=== PATIENT | female | born 1960 | race Caucasian/White ===

== ENCOUNTER 2017-12-20 06:07 | Emergency (ER) | payer OTHER, SELFPAY ==
--- NOTE | 2017-12-20 06:08 | ED.RN ---
CALLED [employer] FOR TESTING
[2017-12-20 06:09] VITALS: BP 151/92; PULSE 75; RESP 17; TEMP 36.4; O2SAT 99; BMI 28.6
[2017-12-20 06:12] VITALS: BP 97/89; PULSE 85; RESP 14; O2SAT 96
--- NOTE | 2017-12-20 06:25 | ED.VISSUMM ---
- ER Visit Summary Date of Service: 12/20/17 Chief Complaint: Facial pain status post fall History of Present Illness: The patient is a 57 F with no medical history who presents for facial injuries after a fall. Patient tripped over a steel beam at work and fell striking her face on concrete. She is complaining of upper incisor pain and feeling of lip tightness. Patient is also complaining of scrapes on her lower extremities. Unknown when last tetanus was. Patient denies loss of consciousness. No neck or back pain. She is not on any blood thinners. Patient has history of left hip degeneration, with pending hip replacement. Physical Examination: Vital signs: afebrile, hemodynamically stable, no hypoxia on room air General: well nourished, well developed, in no distress Skin: warm, dry, abrasions to the left knee, dirt on the face, upper extremities, and lower extremities. HEENT: normocephalic and atraumatic, no scalp tenderness or hematoma; PERRL, EOMI, no tenderness or deformity to the nasal bridge, no septal hematoma, no malocclusion, no hemotympanum, swelling noted to the upper lip, the left front incisors or is embedded in the mucosal surface of the upper lip. No lower tooth tenderness or avulsion/loose teeth. Moist mucous membranes, no oropharyngeal bleeding Neck: Supple, full active range of motion, no midline tenderness deformities or step-offs Cardiovascular: regular rate and rhythm without murmurs, no peripheral edema, 2+ pulses all distal extremities, no chest tenderness Respiratory: No increased work of breathing, lungs are clear to auscultation bilaterally, no rales, rhonchi or wheezing Abdominal: Abdomen is soft, nontender with normoactive bowel sounds, no guarding or rebound, no masses MSK: Moves all extremities, no deformities, normal strength, pelvis is stable, negative logroll bilaterally of the hips, full flexion and extension of the knees, distal motor, strength and sensation intact all extremities Neuro: Awake and alert, oriented ?4. No facial droop, sensation and motor function intact and symmetric Test Results: [] Emergency Department Course and Treatment: Patient presents with injuries to her face and left lower extremity after a fall. Patient declined pain medications. Patient had no findings on history or exam concerning for ICH, and exam was not concerning for nasal fracture or any other facial fractures. Her left front incisor was stuck in her upper lip, and secondary to pain, we were unable to free the lip without anesthesia. Thus a cotton ball was soaked in LET, divided, and placed on either side of the entrapped section of lip. While patient was holding the cotton balls in place, her lips spontaneously freed from the tooth. Examination of the upper teeth showed none to be loose or obviously avulsed, impacted or fractured. Patient did feel like 1 of them was tender but upon examining her teeth in a mirror, she felt they looked normal position. The laceration to the mucosal vermilion of the upper lip was examined and was partial thickness, 5 mm in length. Discussed with patient primary closure versus allowing it to heal on its own. Patient did not want suturing performed. Thus we discussed oral hygiene and patient was placed on prophylactic antibiotics. Patient complained of worsening hip pain and an x-ray was performed of the left hip. No fracture noted. Patient will use OTC pain medications as needed. DC home. Treatment Plan: [] Disposition: [] Impression: 5 mm mucosal lip laceration, upper lip; left hip contusion This note was generated with [employer] dictation software. It may contain incorrect words, spelling, and punctuation that were not noted in review of the chart prior to signing ED Disposition - Plan for ED Patient: Chief Complaint: Other, Pain/Inj Prescriptions: Amox/Clavulanate Tablet [Augmentin Tablet] 875 mg PO Q12H #14 tab Referrals: Rody Sanchez DO [Primary Care Provider] -
--- NOTE | 2017-12-20 06:29 | ED.DCSUM_ITS ---
- ER Visit Summary Date of Service: 12/20/17 Chief Complaint: Facial pain status post fall History of Present Illness: The patient is a 57 F with no medical history who presents for facial injuries after a fall. Patient tripped over a steel beam at work and fell striking her face on concrete. She is complaining of upper incisor pain and feeling of lip tightness. Patient is also complaining of scrapes on her lower extremities. Unknown when last tetanus was. Patient denies loss of consciousness. No neck or back pain. She is not on any blood thinners. Patient has history of left hip degeneration, with pending hip replacement. Physical Examination: Vital signs: afebrile, hemodynamically stable, no hypoxia on room air General: well nourished, well developed, in no distress Skin: warm, dry, abrasions to the left knee, dirt on the face, upper extremities , and lower extremities. HEENT: normocephalic and atraumatic, no scalp tenderness or hematoma; PERRL, EOMI, no tenderness or deformity to the nasal bridge, no septal hematoma, no malocclusion, no hemotympanum, swelling noted to the upper lip, the left front incisors or is embedded in the mucosal surface of the upper lip. No lower tooth tenderness or avulsion/loose teeth. Moist mucous membranes, no oropharyngeal bleeding Neck: Supple, full active range of motion, no midline tenderness deformities or step-offs Cardiovascular: regular rate and rhythm without murmurs, no peripheral edema, 2 + pulses all distal extremities, no chest tenderness Respiratory: No increased work of breathing, lungs are clear to auscultation bilaterally, no rales, rhonchi or wheezing Abdominal: Abdomen is soft, nontender with normoactive bowel sounds, no guarding or rebound, no masses MSK: Moves all extremities, no deformities, normal strength, pelvis is stable, negative logroll bilaterally of the hips, full flexion and extension of the knees, distal motor, strength and sensation intact all extremities Neuro: Awake and alert, oriented ?4. No facial droop, sensation and motor function intact and symmetric Test Results: [] Emergency Department Course and Treatment: Patient presents with injuries to her face and left lower extremity after a fall. Patient declined pain medications. Patient had no findings on history or exam concerning for ICH, and exam was not concerning for nasal fracture or any other facial fractures. Her left front incisor was stuck in her upper lip, and secondary to pain, we were unable to free the lip without anesthesia. Thus a cotton ball was soaked in LET, divided, and placed on either side of the entrapped section of lip. While patient was holding the cotton balls in place, her lips spontaneously freed from the tooth. Examination of the upper teeth showed none to be loose or obviously avulsed, impacted or fractured. Patient did feel like 1 of them was tender but upon examining her teeth in a mirror, she felt they looked normal position. The laceration to the mucosal vermilion of the upper lip was examined and was partial thickness, 5 mm in length. Discussed with patient primary closure versus allowing it to heal on its own. Patient did not want suturing performed. Thus we discussed oral hygiene and patient was placed on prophylactic antibiotics. Patient complained of worsening hip pain and an x- ray was performed of the left hip. No fracture noted. Patient will use OTC pain medications as needed. DC home. Treatment Plan: [] Disposition: [] Impression: 5 mm mucosal lip laceration, upper lip; left hip contusion This note was generated with [employer] dictation software. It may contain incorrect words, spelling, and punctuation that were not noted in review of the chart prior to signing ED Disposition - Plan for ED Patient: Chief Complaint: Other, Pain/Inj Prescriptions: Amox/Clavulanate Tablet [Augmentin Tablet] 875 mg PO Q12H #14 tab Referrals: Rody Sanchez DO [Primary Care Provider] -
[2017-12-20] MEDS: Lidocaine/Epi/Tetracaine 50 ML 1 APPLIC TOPICAL (07:06)
[2017-12-20] MEDS: Diphth,Pertuss(Acell),Tet Vac 0.5 ML Vial IM (07:10)
--- NOTE | 2017-12-20 07:20 | NURSING ---
did not have to suture when let was applied and the pt was able to remove skin.
--- NOTE | 2017-12-20 07:48 | RAD_ITS ---
STUDY: X-RAY - PELVIS AND LEFT HIP REASON FOR EXAM: Pain status post fall. TECHNIQUE: Radiological exam, hip, unilateral, with pelvis when performed; 2 or 3 views. COMPARISON: Radiographs 05/13/2012. FINDINGS: There are pelvic phleboliths. Normal bilateral iliac wings, sacroiliac joints and visualized sacrum. There is a bone island in the superior left sacrum. Normal bilateral superior and inferior pubic rami. Normal pubic symphysis. Normal bilateral ischial tuberosities. Normal visualized left femoral head. Normal left acetabulum. Normal left hip joint. There is a right hip arthroplasty. RAD/Hip 2-3 Views with Pelvis IMPRESSION: Right hip arthroplasty. No demonstrated left hip fracture. Electronically Signed: Chris Kaufman MD at 8:02 EDT Tel , Service support ,
--- NOTE | 2017-12-20 07:59 | DCINST.ED_ITS ---
ED Disposition - Plan for ED Patient: Disposition: Home or Assisted Living Chief Complaint: Other, Pain/Inj Instructions: ED Laceration Mouth, ED Contusion Hip Prescriptions: Amox/Clavulanate Tablet [Augmentin Tablet] 875 mg PO Q12H #14 tab Referrals: Rody Sanchez DO [Primary Care Provider] - 3-5 Days if not improving Additional Instructions: Please follow up with your dentist for an evaluation of your teeth after your injury today. Take the antibiotic for infection prevention of your lip laceration. Swish with warm water several times a day to help keep the cut clean. Avoid spicy or acid the foods until it is healed. You may use over-the- counter pain medications as needed for pain. You may also use ice on your upper lip and your hip to help with pain and swelling. If you have any worsening of your condition or any new concerning symptoms, please return immediately to the emergency department for another evaluation.
[2017-12-20 08:14] VITALS: BP 130/72; PULSE 72; RESP 18; O2SAT 99
== END 2017-12-20 08:16 | disposition home or self-care (01) ==
PROVIDERS: Emergency Provider Emergency Medicine; Family Provider Internal Medicine; PCP Internal Medicine
DX: S01.511A Laceration without foreign body of lip, initial encounter (principal); M16.12 Unilateral primary osteoarthritis, left hip; Z79.899 Other long term (current) drug therapy; W01.0XXA Fall on same level from slipping, tripping and stumbling without subsequent striking against object, initial encounter; Y93.01 Activity, walking, marching and hiking; Y92.89 Other specified places as the place of occurrence of the external cause; Y99.0 Civilian activity done for income or pay
CPT/HCPCS: 73502; 90715; 99282

== ENCOUNTER → 2018-01-15 07:22 | Outpatient (CLI) | payer BC, SELFPAY ==
--- NOTE | 2018-01-15 07:25 | BI_ITS ---
MAMMOGRAPHY - BILATERAL SCREENING REASON FOR EXAM: Female, 57 years old. Routine annual screening examination. PERTINENT HISTORY: Mother with breast cancer. TECHNIQUE: Digital bilateral breast nirmal (3D mammographic acquisition) in the CC and MLO projections. 2-D mediolateral oblique (MLO) and craniocaudad (CC) views of both breasts were obtained. CAD: Full Field Digital Mammography with Computer Added Detection was performed. COMPARISON: Comparison is made with prior study dated December 05, 2016 and November 05, 2014. FINDINGS: Breast Composition: There are scattered areas of fibroglandular density. There are no dominant masses or suspicious calcifications. No other significant abnormalities are identified. There has been no significant change since the prior study. BI/SCREENING MAMM (CAD), BILAT IMPRESSION: Stable bilateral screening mammogram. Yearly follow-up mammogram recommended. (A) ASSESSMENT CATEGORY: BIRADS Category 2: Benign. A letter regarding these results will be sent to the patient by the facility within 30 days. Approximately 10% of breast cancers are not detected by mammography. A normal mammogram should not delay biopsy of a clinically suspicious abnormality. [id number] Electronically Signed: James Palomo MD at 10:08 EDT Tel [phone], Service support ,
== END ==
PROVIDERS: Family Provider Internal Medicine; PCP Internal Medicine; Visit Provider Internal Medicine
DX: Z12.31 Encounter for screening mammogram for malignant neoplasm of breast (principal)
CPT/HCPCS: 77063; 77067

== ENCOUNTER → 2019-01-16 | Outpatient (CLI) | payer BC, SELFPAY ==
--- NOTE | 2019-01-16 09:33 | BI_ITS ---
MAMMOGRAPHY - BILATERAL SCREENING REASON FOR EXAM: Female, 58 years old. Routine annual screening examination. PERTINENT HISTORY: Mother with breast cancer. TECHNIQUE: Digital bilateral breast shaan (3D mammographic acquisition) in the CC and MLO projections. 2-D mediolateral oblique (MLO) and craniocaudad (CC) views of both breasts were obtained. CAD: Full Field Digital Mammography with Computer Added Detection was performed. COMPARISON: Comparison is made with prior study dated January 15, 2018 and December 13, 2016. FINDINGS: Breast Composition: There are scattered areas of fibroglandular density. There are no dominant masses or suspicious calcifications. No other significant abnormalities are identified. There has been no significant change since the prior study. BI/SCREEN MAMM (CAD) W/SHAAN BILAT IMPRESSION: Stable bilateral screening mammogram. Yearly follow-up mammogram recommended. (A) ASSESSMENT CATEGORY: BIRADS Category 1: Negative. A letter regarding these results will be sent to the patient by the facility within 30 days. Approximately 10% of breast cancers are not detected by mammography. A normal mammogram should not delay biopsy of a clinically suspicious abnormality. [id number] Electronically Signed: James Palomo, at 11:26 EDT , Service support ,
--- NOTE | 2019-01-16 09:40 | BD_ITS ---
STUDY: DUAL ENERGY X-RAY ABSORPTIOMETRY / DXA REASON FOR EXAM: Female, 58 years old. The patient is postmenopausal. Loss of height. TECHNIQUE: Bone Mineral Density (BMD) measurements of lumbar spine and left forearm were obtained. The patient is status post bilateral hip replacements. COMPARISON: Comparison is made with prior study dated December 05, 2016. FINDINGS: Lumbar Spine (L1-L4): g/cm2 (1.084) / T-score (-0.8) / Z-score (0.4) Findings are suggestive of normal bone density with a low fracture risk. Left Forearm: g/cm2 (0.738) / T-score (-1.6) / Z-score (-0.6) The T-Scores on the most recent prior examination were: Lumbar Spine (L1-L4): There has been worsening of bone density since the previous examination. BD/Dexa Bone Density Study IMPRESSION: The patient is considered osteopenic as outlined below according to World Kenny Organization (WHO) criteria with a moderate fracture risk. There has been worsening of bone density since the previous examination. Reference Information: The T-score is the number of standard deviations above or below the standard which is normal for young adults at their peak bone mineral density. The World Health Organization (WHO) interprets the T-scores as follows: Above -1 Normal bone density Between -1 and -2.5 Osteopenia Equal to / or below -2.5 Osteoporosis As a practical clinical guideline, osteopenia may be graded as follows: Mild -1 through -1.5 Moderate -1.6 through -2.0 Severe -2.1 through -2.4 The Z-score is the number of standard deviations above or below age-matched controls. A Z-score of less than -1.5 would be considered abnormal. References: 1. NIH Osteoporosis and Related Bone Diseases http://www.osteo.org 2. International Society for Clinical Densitometry http://www.iscd.org 3. National Osteoporosis Foundation http://www.nof.org Electronically Signed: James Palomo, at 10:41 EDT , Service support ,
== END | disposition home or self-care (01) ==
LOC: OPBD 09:31
PROVIDERS: Family Provider Internal Medicine; PCP Internal Medicine; Referring Provider Internal Medicine; Visit Provider Internal Medicine
DX: Z78.0 Asymptomatic menopausal state (principal); Z12.31 Encounter for screening mammogram for malignant neoplasm of breast
CPT/HCPCS: 77063; 77067; 77080

== ENCOUNTER 2020-07-09 16:53 | Emergency (ER) | payer BC, SELFPAY ==
[2020-07-08 08:25] VITALS: BMI 27.7
[2020-07-09 16:53] VITALS: BP 115/71; PULSE 106; RESP 16; TEMP 36.5; O2SAT 98; BMI 27.3
--- NOTE | 2020-07-09 17:25 | ED.DCSUM_ITS ---
- ER Visit Summary Date of Service: 07/09/20 Chief Complaint: Left knee pain History of Present Illness: The patient is a [address] Page. She has a history of a right total knee arthroplasty by Dr. Lopez, she reports that she has left knee pain that began 2 days ago. Is a sharp, aching pain is 10 of 10 at worst and 6 out of 10 currently. Is worsened by walking. She taken Flexeril without relief. Denies any trauma. No fall, MVA, or change in activity. 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 She denies any numbness or weakness. Patient was seen at urgent care yesterday and had an x-ray that showed a joint effusion, but no bony abnormality. She was discharged on Flexeril and has not gotten any relief from this. Patient reports the pain was so severe yesterday that she became nausea and vomited once. There is no blood in her emesis. She denies any abdominal pain or diarrhea. No fever or chills. No other complaints. Physical Examination: Vitals: Stable. Afebrile. General: Well-nourished and well-developed. Head: Normocephalic atraumatic. Neck: Supple, no lymphadenopathy. No JVD. Nontender. Cardiovascular: Regular rate and rhythm. No murmurs. Respiratory: No respiratory distress. Clear to auscultation bilaterally. Abdominal: Soft, nontender, nondistended, normal bowel sounds. No guarding, rebound, or peritoneal signs. Back: Nontender. Extremities: Moderate joint effusion to the left knee. She has moderate tenderness palpation over the medial side of the knee. There is no overlying erythema or warmth to suggest a septic joint. She has minimal pain with short arc movements. She does have limited range of motion due to pain over full movements. She has pain, but no ligamentous instability with anterior drawer. No pain or ligamentous instability with posterior drawer or medial/lateral stress. Skin: Normal color, no rash. Neurologic: Alert and oriented ?3. Cranial nerves II through XII are intact. Normal strength and sensation. Psych: Normal affect. Test Results: I reviewed the x-ray from yesterday. It does show the joint effusion and no bony pathology. Emergency Department Course and Treatment: I offered to do arthrocentesis and injection of the patient's knee. She refused this. An OARRS report was obtained which was negative. She refused pain medications while here. She has crutches at home. Treatment Plan: Patient will be discharged with Percocet and Colace. Instructed to use crutches and ice. Follow-up with orthopedic surgeon as soon as possible. Return to the emergency department for any worsening symptoms. Disposition: To home in improved and stable condition. Impression: 1. Left knee pain, acute. This note was generated with [employer] dictation software. It may contain incorrect words, spelling, and punctuation that were not noted in review of the chart prior to signing ED Disposition - Plan for ED Patient: Instructions: ED Knee Pain of Uncertain Cause Prescriptions: Docusate Sodium [Colace] 100 mg PO DAILY #20 capsule Oxycodone HCl/Acetaminophen [Percocet 5/325] 1 tablet PO Q6H PRN PRN 3 Days #12 tablet PRN Reason: Pain Referrals: Sterling Lopez MD [NON-STAFF] - As soon as possible
== END 2020-07-09 17:47 | disposition home or self-care (01) ==
LOC: ED 17:28
PROVIDERS: Emergency Provider Emergency Medicine; PCP Internal Medicine
DX: M25.562 Pain in left knee (principal); F32.9 Major depressive disorder, single episode, unspecified; Z79.899 Other long term (current) drug therapy
CPT/HCPCS: 99282

== ENCOUNTER 2020-07-12 09:07 | Emergency (ER) | payer BC, SELFPAY ==
[2020-07-12 09:07] VITALS: BP 138/97; PULSE 89; RESP 18; TEMP 36.6; O2SAT 99; BMI 29.7
--- NOTE | 2020-07-12 09:24 | RAD_ITS ---
STUDY: X-RAY - LEFT KNEE REASON FOR EXAM: Female, 60 years old. INCREASING MEDIAL LEFT KNEE PAIN AND SWELLING, PT STATES NO INJURY TECHNIQUE: 4 view(s) of the knee. COMPARISON: Comparison is made with prior study dated 07/08/2020. FINDINGS: Normal visualized distal femur. Normal visualized proximal tibia and fibula. Normal proximal tibiofibular articulation. Normal medial femorotibial compartment. Normal lateral femorotibial compartment. Normal patellofemoral articulation. Stable moderate-sized joint effusion. Soft tissue swelling. RAD/Knee 4 or More Views IMPRESSION: Moderate size joint effusion and soft tissue swelling. Electronically Signed: James Palomo MD at 10:00 EST , Service support ,
--- NOTE | 2020-07-12 09:26 | ED.VIS.GEN ---
History of Present Illness Chief Complaint: Lower Extremity Injury Informant: Patient Onset: Days Context: Sudden Onset Timing: Continuous Quality: Pain and swelling Location: Left knee Current Severity: Mild Maximum Severity: Severe Worsened by: Any type of movement and especially weightbearing Relieved by: Nothing Associated Symptoms: No constitutional symptoms, no history of direct trauma Narrative: Patient is 60-year-old woman history of depression and osteoarthritis presents with knee pain that acutely got worse last . She states she was walking down steps. She heard a crunch. Pain started. She has had increased swelling. She states it has swollen in the past but not to this extent. She denies history of gout or pseudogout. She denies fever or chills. She denies history of hypertension and is not on any thiazide diuretic. Patient denies paresthesia, anesthesia or motor weakness. Patient denies direct trauma. Patient is status post right total knee arthroplasty by Dr. Etienne Lopez. Prior similar symptoms: Yes Recent Illness/Hospitalization: No - Past Medical History (1) History of depression Status: Acute (2) History of osteoarthritis Status: Acute Past Medical History - Allergies and Home Meds Allergies/Adverse Reactions: Allergies No Known Allergies Allergy (Verified 07/12/20 09:10) Primary Care Physician: Rody Sanchez DO [Primary Care Provider] - Prior records reviewed: Yes Surgical History: total knee arthroplasty Lives: Alone Smoking Status: Never smoker Alcohol: None Drugs: None Review of Systems General: Denies: Chills, Fever, Malaise, Subjective, Sweats ENT: Denies: Rhinorrhea, Sore throat Cardiovascular: Denies: Chest pain, Palpitations Respiratory: Denies: Dyspnea, Cough Gastrointestinal: Denies: Nausea, Vomiting Genitourinary: Denies: Dysuria, Hematuria, Frequency Musculoskeletal: Reports: Swelling - Left knee, Extremity Pain. Denies: Myalgias, Arthralgias, Neck pain, Back pain Skin: Denies: Rash, Wounds Neurological: Denies: Parasthesia, Numbness Endocrine: Denies: Polyuria, Polydipsia Hematologic: Denies: Easy bruising - Patient states she is not on anticoagulant and does not take aspirin. Physical Exam Vital Signs/Narrative: Vital Signs Temp Pulse Resp BP Pulse Ox 07/12/20 09:07 97.9 F 89 18 138/97 H 99 Inital Vital Signs reviewed: Yes General: Well nourished, Well developed, No Acute Distress Head: Normocephalic, Atraumatic Eyes: Perrl, EOMI Neck: Supple, Nontender, No lymphadenopathy, No JVD Cardiovascular: Regular rate, Regular rhythm, No murmurs, Normal S1, Normal S2 Respiratory: No distress, CTA bilaterally, Chest nontender Rectal: Deferred Extremities: No edema, Tenderness - There is tenderness over the left knee anteriorly. There is an effusion. The patella is not ballotable. Unable to assess for laxity of the collateral ligaments, unable to perform Alessandra's test or modified Maki's test.. Negative for: Nontender Skin: Normal color, No rash, No Trauma. Negative for: Cyanosis, Diaphoresis, Jaundice Neurological: Alert, Oriented x3, Cranial nerves II-XII grossly intact, Normal Strength, Normal Sensation Psychological: Depressed Diagnostic/Tx/Re-eval Chest X-Ray - ED: Read by ED Physician - 4 views of the left knee were obtained. There is no significant abnormality. There may be a very small effusion. There is soft tissue swelling noted. There is no fracture. There is no malalignment. X-ray was interpreted by me at 0959. 07/12/20 09:24 Knee 4 or More Views [RAD] Stat - Medical Decision Making Has a significant effusion left knee. Concerned this is due to osteoarthritis. She has no constitutional symptoms to suggest pyogenic arthritis. Doubt crystal induced arthritis. X-ray was obtained to evaluate joint space. She was medicated with IV Toradol and IV morphine. Patient was reassessed at 1128. Patient reports improvement. Alessandra's test was negative. With varus valgus stress testing she complained of pain over the MCL. There was no laxity. Unable to perform modified Maki's test. Patient will follow up with her orthopedist. ED Disposition - Plan for ED Patient: Disposition: Home or Assisted Living Diagnosis: Knee effusion, left Instructions: ED Knee Effusion, ED Osteoarthritis Prescriptions: Hydrocodone Bitart/Apap 5-325 [[place] 5MG-325MG] 1 tablet PO Q6H PRN PRN 3 Days #10 tablet PRN Reason: Pain Transmission Status: Received by [id number] Referrals: Rody Sanchez DO [Primary Care Provider] - Sterling Lopez MD [NON-STAFF] - 5-7 Days
[2020-07-12] MEDS: Morphine 4 MG/ML Syringe IV (09:38)
[2020-07-12] MEDS: Ketorolac 15 MG/ML Vial IV (09:38)
[2020-07-12 11:52] VITALS: BP 142/88; PULSE 73; RESP 15; O2SAT 96
== END 2020-07-12 12:53 | disposition home or self-care (01) ==
PROVIDERS: Emergency Provider Emergency Medicine; PCP Internal Medicine
DX: M25.462 Effusion, left knee (principal); F32.9 Major depressive disorder, single episode, unspecified; M19.90 Unspecified osteoarthritis, unspecified site; Z79.899 Other long term (current) drug therapy
CPT/HCPCS: 73564; 96372; 96374; 96375; 99285; A4216

== ENCOUNTER → 2023-05-22 | Outpatient (CLI) | payer MEDICARE, SELFPAY ==
--- NOTE | 2023-05-22 09:10 | BI_ITS ---
MAMMOGRAPHY - BILATERAL SCREENING REASON FOR EXAM: Female, 62 years old. Routine annual screening examination. PERTINENT HISTORY: Mother with breast cancer. TECHNIQUE: Digital bilateral breast shaan (3D mammographic acquisition) in the CC and MLO projections. 2-D mediolateral oblique (MLO) and craniocaudad (CC) views of both breasts were obtained. CAD: Full Field Digital Mammography with Computer Added Detection was performed. COMPARISON: Comparison is made with prior study January 16, 2019 and January 15, 2018. FINDINGS: Breast Composition: The breasts are heterogeneously dense, which may obscure small masses. There is a 1.1 cm x 1.2 cm well-defined nodular density in the deep axillary region of the right breast. Correlation with ultrasound is recommended. No other significant abnormalities are identified. BI/SCRN MAMM (CAD)W/SHAAN BILAT IMPRESSION: 1.1 cm x 1.2 cm well-defined nodular density in the deep axillary region of the right breast. Correlation with ultrasound is recommended. ASSESSMENT CATEGORY: BIRADS Category 0: Incomplete. Need additional imaging evaluation. A letter regarding these results will be sent to the patient by the facility within 30 days. Approximately 10% of breast cancers are not detected by mammography. A normal mammogram should not delay biopsy of a clinically suspicious abnormality. [id number] Electronically Signed: James Palomo MD at 12:23 EST ,
--- NOTE | 2023-05-22 09:16 | BD_ITS ---
STUDY: DUAL ENERGY X-RAY ABSORPTIOMETRY / DXA REASON FOR EXAM: Female, 62 years old. [id number] TECHNIQUE: Bone Mineral Density (BMD) measurements of lumbar spine and left forearm were obtained. COMPARISON: Comparison is made with prior study January 16, 2019. FINDINGS: Lumbar Spine (L1-L4): g/cm2 (0.932) / T-score (-1.0) / Z-score (0.7) Findings are suggestive of normal bone density with a low fracture risk. Left Forearm: g/cm2 (0.490) / T-score (-1.6) / Z-score (0.1) The T-Scores on the most recent prior examination were: Lumbar Spine (L1-L4): There has been worsening of bone density since the previous examination. BD/Dexa Bone Density Study IMPRESSION: The patient is considered osteopenic as outlined below according to World Kenny Organization (WHO) criteria with a moderate fracture risk. There has been worsening of bone density since the previous examination. Reference Information: The T-score is the number of standard deviations above or below the standard which is normal for young adults at their peak bone mineral density. The World Health Organization (WHO) interprets the T-scores as follows: Above -1 Normal bone density Between -1 and -2.5 Osteopenia Equal to / or below -2.5 Osteoporosis As a practical clinical guideline, osteopenia may be graded as follows: Mild -1 through -1.5 Moderate -1.6 through -2.0 Severe -2.1 through -2.4 The Z-score is the number of standard deviations above or below age-matched controls. A Z-score of less than -1.5 would be considered abnormal. References: 1. NIH Osteoporosis and Related Bone Diseases www osteo.org 2. International Society for Clinical Densitometry www iscd.org 3. National Osteoporosis Foundation www nof.org Electronically Signed: James Palomo MD at 12:26 EST ,
== END | disposition home or self-care (01) ==
PROVIDERS: PCP Internal Medicine; Referring Provider Internal Medicine; Visit Provider Internal Medicine
DX: Z12.31 Encounter for screening mammogram for malignant neoplasm of breast (principal); Z78.0 Asymptomatic menopausal state; Z80.3 Family history of malignant neoplasm of breast
CPT/HCPCS: 77063; 77067; 77080

== ENCOUNTER → 2023-05-24 | Outpatient (CLI) | payer MEDICARE, SELFPAY ==
--- NOTE | 2023-05-24 09:17 | US_ITS ---
STUDY: ULTRASOUND BREAST - RIGHT REASON FOR EXAM: Female, 63 years old. Abnormal screening mammogram. TECHNIQUE: Axial and longitudinal images of the RIGHT breast were performed with a high resolution ultrasound transducer. # OF IMAGES: 36 COMPARISON: Comparison is made with prior mammogram dated May 22, 2023. FINDINGS: RIGHT Breast: The upper-outer quadrant of the right breast was examined with ultrasound. The mammographic abnormality corresponds to a 1.4 cm x 0.9 cm x 0.5 cm cyst. US/Breast Limited Unilateral IMPRESSION: 1.4 cm x 0.9 sign by 0.5 cm cyst corresponding to the mammographic abnormality. ASSESSMENT CATEGORY: BIRADS Category 2: Benign. A letter regarding these results will be sent to the patient by the facility within 30 days. Electronically Signed: James Palomo MD at 10:38 EST ,
== END | disposition home or self-care (01) ==
PROVIDERS: PCP Internal Medicine; Referring Provider Internal Medicine; Visit Provider Internal Medicine
DX: R92.8 Other abnormal and inconclusive findings on diagnostic imaging of breast (principal)
CPT/HCPCS: 76642